=== PATIENT | female | born 1955 | race Caucasian/White ===

== ENCOUNTER 2023-05-19 08:39 | Emergency (ER) | payer OTHER ==
[~2023-05-19] VITALS: Ht 165.1 cm; Wt 70.3 kg
[2023-05-19] MEDS ORDERED: PLAVIX75 MG PO ×2 (08:57→08:59)
[2023-05-19] MEDS ORDERED: ARMOUR THYROID60 M1 PO (08:58)
[2023-05-19] MEDS ORDERED: AVAPRO75 MG PO (08:59)
[2023-05-19] MEDS ORDERED: IPRATROPIUM BRO30 ML NS (08:59)
[2023-05-19] MEDS ORDERED: LEXAPRO5 MG PO (08:59)
== END 2023-05-19 10:43 | disposition home or self-care (01) ==
LOC: ER 08:39
DX: S42.302A Unspecified fracture of shaft of humerus, left arm, initial encounter for closed fracture (principal); W19.XXXA Unspecified fall, initial encounter; Y93.9 Activity, unspecified; Y92.814 Boat as the place of occurrence of the external cause; Y99.9 Unspecified external cause status